=== PATIENT | male | born 1950 | race Caucasian/White ===

== ENCOUNTER → 2016-11-09 | Outpatient (CLI) | payer BC ==
[~2016-11-09] MED LIST: AMIODARONE PO; ASPIRIN PO; ATENOLOL PO; COUMADIN PO; DIOVAN HCT 160-1 TAB PO; LIPITOR PO; ZYLOPRIM PO
--- NOTE | ~2016-11-09 | US84 ---
[id number] [address] [address] [id number] O MR#: [id number] Acc #: [id number] NAME: LEILA ABRAMS : 1950 SEX: M STUDY DATE/TIME: 11/09/2016 8:40 UNIT: [facility] ROOM: STUDY DESCRIPTION: US LE Veins Complete Hi Stdy Attending Physician: Nikolas Molina M.D. Referring Physician: Nikolas Molina M.D. Ordering Physician: Nikolas Molina M.D. Primary Care Physician: Nikolas Molina M.D. MEDICAL IMAGING REPORT This report is preliminary unless electronic signature is present. EXAM Bilateral lower extremity venous duplex, 11/09/2016. HISTORY Bilateral lower extremity edema for 3 weeks, status post left knee replacement, July 2016. Evaluate for deep vein thrombosis. TECHNIQUE Venous ultrasound examination of both lower extremities was performed using grayscale, spectral Doppler and color flow Doppler imaging. FINDINGS The examination is negative. There is no evidence of deep venous thrombus from the groin to the lower calf bilaterally. Visualized greater saphenous veins are also patent. IMPRESSION Negative examination. No evidence of lower extremity DVT. Dictated by... Raj Johnson M.D. THIS IS AN ELECTRONICALLY VERIFIED REPORT Raj Johnson M.D. at 11/09/2016 6:25 PM Gracy TD: 11/09/2016 16:44 JOB #: [id number] MEDICAL IMAGING REPORT Page 1 of 1
== END | disposition home or self-care (01) ==
LOC: SNIV 08:18
DX: M79.89 Other specified soft tissue disorders (principal)
CPT/HCPCS: 93970